=== PATIENT | male | born 1945 | race Caucasian/White ===

== ENCOUNTER 2016-12-18 14:01 | Inpatient (IN) ==
--- NOTE | 2016-12-18 14:31 | Emergency Department Note ---
Disposition Clinical Impression: Chest pain Disposition: Admitted As Inpatient Condition: Fair [facility] Care Provider[facility] - Forms: ED Satisfaction Letter General Adult HPI - General Chief complaint: ED Chest Pain Stated complaint: chest pain Time Seen by Provider: 12/18/16 14:09 Source: EMS Limitations: no limitations Nursing Notes Reviewed: Yes Vital Signs Reviewed: Yes - History of Present Illness Pain Scale: 6 - Related Data Home Medications Medication Instructions Recorded Confirmed Diclofenac Sodium [Voltaren] 2 gm TP BID 12/18/16 12/18/16 Gabapentin [Gabapentin] 800 mg PO TID 12/18/16 12/18/16 Lidocaine [Lidocream] 1 appl TP QID 12/18/16 12/18/16 Potassium Citrate [Potassium 10 meq PO TID 12/18/16 12/18/16 Citrate ER] Pravastatin Sodium [Pravastatin 20 mg PO DAILY 12/18/16 12/18/16 Sodium] Salsalate [Salsalate] 750 mg PO TID 12/18/16 12/18/16 Allergies Allergy/AdvReac Type Severity Reaction Status Date / Time No Known Allergies Allergy Verified 12/18/16 14:07 Past Medical History - Past Medical History Medical history: Reports: arthritis Psychiatric history: Reports: no psych history - Social History Smoking Status: Former smoker Smokeless Tobacco Status: No Alcohol use: Reports: none Drug use: Reports: none Physical Exam - General Limitations: no limitations General appearance: alert Course Vital Signs Temperature 97.7 F 12/18/16 14:02 Pulse Rate 67 12/18/16 14:02 Respiratory Rate 18 12/18/16 14:02 Blood Pressure 132/92 12/18/16 14:02 O2 Sat by Pulse Oximetry 96 12/18/16 14:02 Temperature 97.7 F 12/18/16 14:02 Pulse Rate 67 12/18/16 14:02 Respiratory Rate 18 12/18/16 14:02 Blood Pressure 132/92 12/18/16 14:02 O2 Sat by Pulse Oximetry 96 12/18/16 14:02 Oxygen Delivery Oxygen Delivery Room Air Medical Decision Making - MDM Narrative Medical decision making narrative: I examined this patient and my medical decision-making was reviewed with the RULING MACHINE FEEDER/PA/Advanced Practice Nurse/Resident Physician. I agree with the documented findings, disposition and treatment plan as described except to the extent set forth below. I evaluated this patient on arrival with EMS with Dr. lu. Patient is a transfer from the [facility]. He denies any chest pain it has been intermittent for couple months. They did a workup for there was negative that and have cardiology service M over to be seen. Patient is currently pain-free at this time he did get aspirin and his troponin was 0. Reviewed his EKG with no EKG years repeating an EKG then we will bring him in for admission for chest pain rule out. Patient's in agreement with this plan. 1545 hrs.: Repeated his chart review. He got nitroglycerin trial here not really certain it did anything. Samuel bring him into the hospital. Hospitalist here as a HAND BOBBIN CLEANER agreed to the admission. Patient's care with this plan..
--- NOTE | 2016-12-18 14:54 | Emergency Department Note ---
Disposition Clinical Impression: Chest pain Qualifiers: Chest pain type: unspecified Qualified Code(s): R07.9 - Chest pain, unspecified Disposition: Admitted As Inpatient Condition: Fair [facility]: [facility] [Primary Care Provider] - Forms: ED Satisfaction Letter Time of Disposition: 15:36 Chest Pain HPI - General Chief Complaint: ED Chest Pain Stated Complaint: chest pain Time Seen by Provider: 12/18/16 14:09 Source: patient, EMS Mode of arrival: EMS Limitations: no limitations Vital Signs Reviewed: Yes Nursing Notes Reviewed: Yes - History of Present Illness HPI Narrative: Patient is a 71-year-old male past medical history of arthritis. He presents today due to chest pain. He is a transfer from the [facility]. Patient states that he has had intermittent left-sided chest pain and pressure on and off for the past 2 months. Usually occurs with exertion. He states that it is a squeezing sensation around his heart. Denies any shortness of breath or nausea, vomiting, sweating. Denies abdominal pain. Denies any fevers. He had a stress test several years ago at the [facility] that was negative. He has not had any recently in the past year. Denies any previous heart attack or stents placed. Workup at the [facility] shows negative troponin 0.00, negative chest x-ray. White blood cell count 4.9. Hemoglobin 14.4. No acute abnormalities of BMP patient did not receive any nitroglycerin at the [facility]. He did receive aspirin 325. Currently states that his chest pain is about a 2 or 3 out of 10 Severity scale (1-10): 6 - Related Data Home Medications Medication Instructions Recorded Confirmed Diclofenac Sodium [Voltaren] 2 gm TP BID 12/18/16 12/18/16 Gabapentin [Gabapentin] 800 mg PO TID 12/18/16 12/18/16 Lidocaine [Lidocream] 1 appl TP QID 12/18/16 12/18/16 Potassium Citrate [Potassium 10 meq PO TID 12/18/16 12/18/16 Citrate ER] Pravastatin Sodium [Pravastatin 20 mg PO DAILY 12/18/16 12/18/16 Sodium] Salsalate [Salsalate] 750 mg PO TID 12/18/16 12/18/16 Allergies Allergy/AdvReac Type Severity Reaction Status Date / Time No Known Allergies Allergy Verified 12/18/16 14:07 Constitutional: Denies: fever, chills Cardiovascular: Reports: chest pain. Denies: palpitations, dyspnea on exertion Respiratory: Denies: cough, dyspnea, wheezes, hemoptysis Gastrointestinal: Denies: abdominal pain, nausea, vomiting Genitourinary: Denies: urgency, dysuria, frequency Musculoskeletal: Denies: back pain, neck pain Integumentary: Denies: rash Neurological: Denies: headache, weakness, numbness, paresthesias Psychiatric: Denies: anxiety, depression Chest Pain PMH - Past Medical History Medical history: Reports: arthritis Psychiatric history: Reports: no psych history - Social History Smoking Status: Former smoker Alcohol use: Reports: none Drug use: Reports: none Physical Exam - General Limitations: no limitations General appearance: alert - Head Head exam: atraumatic, normocephalic, normal inspection - Eye Eye exam: Present: normal appearance, PERRL, EOMI - ENT ENT exam: normal exam, normal oropharynx, mucous membranes moist - Neck Neck exam: Present: normal inspection, full ROM, trachea midline - Chest Chest inspection: Present: normal inspection, symmetric chest wall rise. Absent : tenderness - Respiratory Respiratory exam: Present: normal lung sounds bilaterally. Absent: respiratory distress, wheezes - Cardiovascular Cardiovascular exam: Present: regular rate, normal rhythm, normal heart sounds - Abdominal Exam Abdominal exam: Present: soft, Non-Tender. Absent: tenderness, distention, guarding, rebound, rigidity - Extremities Exam Extremities exam: Present: normal inspection, full ROM. Absent: tenderness, pedal edema - Back Exam Back exam: Present: normal inspection, full ROM. Absent: tenderness - Neurological Exam Neurological exam: Present: alert, oriented X3 - Psychiatric Psychiatric exam: Present: normal affect, normal mood - Skin Skin exam: Present: warm, dry, intact, normal color Course Course Narrative: Vitals within normal limits. Repeat EKG shows normal sinus rhythm with no acute ST changes. No additional workup needs to be done here. Troponin was drawn 2 hours ago. Not quite time to draw another troponin level. We will give patient nitroglycerin to see if this reduces chest pain. Will admit for chest pain rule out. Vital Signs Temperature 97.7 F 12/18/16 14:02 Pulse Rate 67 12/18/16 14:02 Respiratory Rate 18 12/18/16 14:02 Blood Pressure 132/92 12/18/16 14:02 O2 Sat by Pulse Oximetry 96 12/18/16 14:02 Temperature 97.7 F 12/18/16 14:02 Pulse Rate 67 12/18/16 14:02 Respiratory Rate 18 12/18/16 14:02 Blood Pressure 132/92 12/18/16 14:02 O2 Sat by Pulse Oximetry 96 12/18/16 14:02 Oxygen Delivery Oxygen Delivery Room Air Chest Pain - MDM Narrative Medical decision making narrative: Vitals within normal limits. Repeat EKG shows normal sinus rhythm with no acute ST changes. No additional workup needs to be done here. Troponin was drawn 2 hours ago. Not quite time to draw another troponin level. We will give patient nitroglycerin to see if this reduces chest pain. Will admit for chest pain rule out. - Medical Records Medical records reviewed: Yes I reviewed the patient's medical records. - Lab Data Lab results reviewed: Yes I reviewed the patient's lab results. - Radiology Data Radiology results reviewed: Yes I reviewed the patient's radiology results. - EKG Data EKG attestation: Yes I reviewed and interpreted this EKG. EKG results narrative: 12/18/2016 at 14:14. Normal sinus rhythm. Rate 68. QTC 411. QRS 89. No acute ST elevation or depression. Normal axis. Heart Score - Score History: Moderately Suspicious EKG: Normal Age: Greater than 65 Risk Factors: No risk factors known Troponin: Less than normal limit HEART Score Total: 3 S.B.A.Abby. - Francisca Situation: Demographics, MOA Background: Presenting Complaint, Relevant PMH, Meds, & Allergies Assessment: Vital Signs, Course and respsone to treatment, Exam Concerns, Patient/Family Expectation, Pertinant Lab Results, Outstanding Labs Recommendation: Barrier(s) to disposition, Recommendation based on pending studies, treatments, or consults S.B.A.RParesh Report Given to: Dr. Frandy Espinosa Repor Time: 15:36
[2016-12-18] MEDS: Nitroglycerin 0.4 MG TAB.SUBL SL PRN ×3 (15:05→15:35)
--- NOTE | 2016-12-18 16:11 | Internal Med History&Physical ---
Date of Encounter: 12/18/16 Time of Encounter: 16:08 Assessment and Plan (1) Chest pain Current visit: Yes Status: Acute Patient admitted due to chest pain under evaluation. We will keep the patient under telemetry monitoring. Will obtain cardiac markers and will follow trend. Continue with by mouth aspirin. Nitrates. Statins. DVT prophylaxis. Nothing by mouth after midnight and a stress test provided negative cardiac biomarkers. Consider evaluation by cardiology according to results of the stress test. We will order BiPAP at night for his obstructive sleep apnea. Hb A1c. Cardiac diet. Plan of care was explained in detail to the patient, he expressed understanding. Qualifiers: Chest pain type: precordial pain Qualified Code(s): R07.2 - Precordial pain Internal Medicine - H&P: HPI Chief complaint: chest paain Admitted From: Emergency Dept Plans for Post Hospital Care: Home History of present illness: Mr. Dillard is a 71 year old male with past medical history of hypertension, osteo-arthritis, obstructive sleep apnea on CPAP at home, hyperlipidemia, vitamin D deficiency, peripheral neuropathy on gabapentin. He presented to our emergency department transferred from the [facility] due to substernal chest pain which started 2 months ago. Patient states that pain is substernal, with intermittent radiation to the neck, is not associated with exertion. Pain lasts between 30 seconds to 1 minute and goes away on its own. Patient states that he complains of these symptoms usually 6 times per month. However, had above described chest pain last night at around midnight and he decided to seek medical attention. He went to the [facility] and upon evaluation he was found to have negative troponins and a chest x-ray unremarkable. He was transferred to our emergency department for further workup and management. During my encounter with the patient he is currently chest pain-free. He did receive 3 doses of sublingual nitroglycerin, he states that it is unclear to him if nitroglycerin helped to relieve the pain. The patient is a former smoker, he is used to smoke 3 packs a day but he quit in 1979. EKG did not reveal acute abnormalities. Past Med Surg Social Fam HX - Past Medical History Medical history: arthritis Psychiatric history: no psych history - Social History Smoking Status: Former smoker Smokeless Tobacco Status: No Alcohol use: none Drug use: none Internal Medicine - H&P: Meds Diclofenac Sodium [Voltaren] 2 gm TP BID 12/18/16 [History] Gabapentin [Gabapentin] 800 mg PO TID 12/18/16 [History] Lidocaine [Lidocream] 1 appl TP QID 12/18/16 [History] Potassium Citrate [Potassium Citrate ER] 10 meq PO TID 12/18/16 [History] Pravastatin Sodium [Pravastatin Sodium] 20 mg PO DAILY 12/18/16 [History] Salsalate [Salsalate] 750 mg PO TID 12/18/16 [History] Allergies No Known Allergies Allergy (Verified 12/18/16 14:07) All Systems PM: A 10-system review of systems was performed and is negative for pertinent findings except as documented above in the HPI. - Constitutional Constitutional: as per HPI, no chills, no fever(s), no night sweats - EENT Eyes: as per HPI, no change in vision, no discharge, no pain, no photophobia Ears: as per HPI, no ear discharge, no ear pain, no tinnitus Nose, mouth and throat: as per HPI, no dysphagia, no nasal discharge, no neck pain, no sore throat - Breasts Breasts: as per HPI - Cardiovascular Cardiovascular ROS IM: as per HPI, no chest pain, no diaphoresis, no dyspnea, no lightheadedness, no palpitations, no syncope - Respiratory Respiratory: as per HPI, no cough, no dyspnea, no wheezing, no excessive phlegm production - Gastrointestinal Gastrointestinal: as per HPI, no abdominal pain, no diarrhea, no hematemesis, no hematochezia, no melena, no nausea, no vomiting - Genitourinary Genitourinary ROS male: as per HPI - Musculoskeletal Musculoskeletal ROS IM: as per HPI, no numbness, no tingling - Integumentary Integumentary IM: as per HPI, no rash, no unusual bruising - Neurological Neurological ROS: as per HPI, no confusion, no convulsions, no focal weakness, no numbness, no tingling, no tremor(s) - Psychiatric Psychiatric: as per HPI - Endocrine Endocrine IM: as per HPI - Hematologic/Lymphatic Hematologic/Lymphatic: as per HPI, no easy bruising - Allergic/Immunologic Allergic/Immunologic: as per HPI - Constitutional Vitals: Temp Pulse Resp BP Pulse Ox 97.7 F 67 18 132/92 96 12/18/16 14:02 12/18/16 14:02 12/18/16 14:02 12/18/16 14:02 12/18/16 14:02 - Head Head exam: Present: atraumatic, normocephalic - Eye Eye exam: Present: PERRL, conjuntiva pink, sclera anicteric Pupils: Present: PERRL - Neck Neck exam general surgery: Present: supple, trachea midline. Absent: lymphadenopathy - Respiratory Respiratory exam: Present: CTAB. Absent: accessory muscle use, rales, rhonchi, wheezes - Cardiovascular Cardiovascular exam: Present: RRR, +S1, +S2. Absent: diastolic murmur, gallop, rubs, systolic murmur - GI/Abdominal GI/Abdominal exam: Present: normal bowel sounds, soft, no peritoneal signs. Absent: distended, tenderness - Extremities Exam Extremities exam: Present: warm, radial pulses palpable and symetrical. Absent : calf tenderness, cyanotic, pedal edema - Neurological Exam Neurological exam: Present: CN II-XII intact, oriented X3, no focal deficits. Absent: pronater drift, facial droop, speech deficit - Skin Skin exam: Present: dry, intact Internal Med - H&P Results - Labs Labs: Labs obtained at the [facility]. Reviewed, negative troponins.
[2016-12-18] MEDS ORDERED: Nitroglycerin 0.4 MG TAB.SUBL SL PRN (16:16)
[2016-12-18] MEDS ORDERED: Acetaminophen 325 MG TABLET PO PRN (16:16)
[2016-12-18] MEDS ORDERED: Naloxone 0.4 MG/ML INJ IVP PRN (16:16)
[2016-12-18] MEDS: *HR* Heparin 5,000 UNIT/ML VIAL SQ SCH (18:33)
[2016-12-18] MEDS ORDERED: D5% in 0.45% NACL 1,000 ML IVC SCH (22:00)
[2016-12-19 00:54] LABS: Basophils % 0.8 %; Eosinophils # 0.3 K/mcL (0.0-0.6); Hematocrit 39.4 % (37.5-50.1); Hemoglobin 13.1 g/dL (12.9-16.9); Immature Granulocytes % 0.4 % (0-4); Immature Platelets 1.8 % (1.1-6.1); Lymphocytes % 38.2 %; Mean Corpuscular HGB Conc 33.2 g/dL (31.6-35.5); Mean Corpuscular Hemoglobin 30.4 pg (28.0-33.3); Mean Corpuscular Volume 91.4 fL (83.0-100.0); Mean Platelet Volume 9.1 fL (9.4-12.4); Monocytes # 0.6 K/mcL (0.0-1.3); Monocytes % 11.6 %; Neutrophils # 2.2 K/mcL (1.6-8.9); Platelet Count 225 K/mcL (140-400); Red Blood Count 4.31 M/mcL (4.19-5.50); Red Cell Distribution Width 13.2 % (11.5-14.5)
[2016-12-19 01:03] LABS: INR 1.1; Prothrombin Time 12.2 Seconds (9.4-12.1)
[2016-12-19 01:33] LABS: Hemoglobin A1C 5.4 %
[2016-12-19 01:37] LABS: BUN/Creatinine Ratio 10 (6-26); Blood Urea Nitrogen 12 mg/dL (8-26); Carbon Dioxide 26 mEq/L (19-29); Chloride 106 mEq/L (98-109); Cholesterol 159 mg/dL (< 200); Glucose 100 mg/dL (70-99); HDL Cholesterol 32 mg/dL (40-59); LDL Cholesterol,Calculated 103 mg/dL (0-99); Osmolality,Calculated 292 (280-300); Sodium 141 mEq/L (136-145); Triglycerides 122 mg/dL (< 150); eGFR For African Americans > 60 (> 60); eGFR For Non-African Americans > 60 (> 60)
[2016-12-19 01:57] LABS: Thyroid Stimulating Hormone 1.598 mcIU/mL (0.350-4.840)
[2016-12-19] MEDS: *HR* Heparin 5,000 UNIT/ML VIAL SQ SCH (06:14)
[2016-12-19] MEDS ORDERED: Regadenoson 0.4 MG/5 ML SYRINGE IVP ONE (06:20)
[2016-12-19] MEDS ORDERED: Aspirin 81 MG TAB.CHEW PO SCH (09:00)
[2016-12-19 09:55] VITALS: BP 113/73
--- NOTE | 2016-12-19 11:58 | Nuclear Medicine Stress Report ---
Regadenoson Nuclear Stress Name: William Dillard Date of Study: 12/19/2016 Date: 1945 Ht: 68.0 in Medical Record#: [id number] Age: 71 Wt: 216.0 lb Gender: Male Order #: [id number] Location: [facility] Room: [facility] Supervising Provider: Mejia Holloway CNP Reading Physician: Shanti Marie DO Ordering Physician: Zoë Dumont CNP Primary Care Physician: [facility] Stress Technologist: Twila Rosario RRT [facility] Transplanter: Hortensia Tuttle Indications: Chest Pain Impression: Perfusion imaging was negative for ischemia or infarct. Pharmacologic ECG was negative for ischemia at the level of heart rate achieved. Gated EF = >70%. History: Hypercholesteremia Stress Test Summary: Stress Test Type: Pharmacologic Regadenoson 0.4mg/5ml given IV Baseline Information: Initial Heart Rate: 73 Blood Pressure: 110/80 Stress Information: Test Terminated Due to (primary): As per protocol Maximum Blood Pressure: 110/70 Maximum Heart Rate: 88 Percent Maximum Heart Rate Achieved: 59 Double Product: 9680 METS Reached: 1 Symptoms: No chest symptoms Nuclear Summary: SPECT myocardial perfusion imaging using Tc99m Sestamibi given intravenously was performed at rest and following cardiac stress testing. The resting images were obtained following initial dose of 10.8 mCi. Following stress an additional dose of 33.6 mCi was given at peak exercise or 30 seconds post regadenoson infusion. Medication Given: Time Medication Dose Units Route Findings: Stress Note * Resting ECG demonstrated normal sinus rhythm with normal findings. * Pharmacologic stress ECG is negative for ischemia at level of heart rate achieved. * No arrhythmias were noted during stress. * Patient had no chest pain during stress. Hemodynamic responses * Normal hemodynamic responses to pharmacologic stress. Study Quality * Study quality is good. Gated EF > 70% * Gated EF > 70%. Left Ventricle * The left ventricle is not dilated. TID * No evidence of transient ischemic dilatation. * Lung Uptake * There is no evidence of increase lung uptake. NORMALS * Normal wall motion. * Normal segmental perfusion in stress. * Normal Segmental Perfusion in rest. Updated by Shanti Marie on 12/19/2016 11:51:43 AM electronically signed on 12/19/2016 11:53:34 AM with status of Final
--- NOTE | 2016-12-19 15:19 | Electrocardiograph Report ---
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
--- NOTE | 2016-12-19 15:58 | Discharge Summary ---
Date of Encounter: 12/19/16 Time of Encounter: 15:55 - Discharge Diagnosis (1) Chest pain Priority: Primary Status: Acute Comments: Atypical, non-cardic chest pain Work up is negative CXR showed no acute processes EKG is NSR Troponin negative X3 Stress test with no ischemic changes, gated EF 70%. Patient educated about cardiac chest pain, continue home meds and lifestyle modification SL NTG prn Follow up with PCP Qualifiers: Chest pain type: precordial pain Qualified Code(s): R07.2 - Precordial pain - Discharge Medications Home Medications: Diclofenac Sodium [Voltaren] 2 gm TP BID 12/18/16 [History] Gabapentin [Gabapentin] 800 mg PO TID 12/18/16 [History] Lidocaine [Lidocream] 1 appl TP QID 12/18/16 [History] Potassium Citrate [Potassium Citrate ER] 10 meq PO TID 12/18/16 [History] Pravastatin Sodium [Pravastatin Sodium] 20 mg PO DAILY 12/18/16 [History] Salsalate [Salsalate] 750 mg PO TID 12/18/16 [History] Nitroglycerin 0.4 mg SL Q5-10MIN PRN #15 tab.subl 12/19/16 [Rx] Allergies/Adverse Reactions: Allergies No Known Allergies Allergy (Verified 12/18/16 14:07) Date of admission: 12/18/16 18:38 Primary care physician: PCP [place] Discharging clinician: Austin Schaefer Anticipated date of discharge: 12/19/16 - Patient Status Disposition: Home, Self-Care Condition: Good Functional capacity at discharge: independent ambulation Overall status at discharge: patient is progressing back to baseline - Discharge Instructions Follow Up With: MELANY,PCP [Primary Care Provider] - 12/25/16 3:00 pm - Diet and Activity Activity: resume usual activities as tolerated Diet: advance to your usual diet Interval History: See below Hospital course: Mr. Dillard is a 71 year old male with PMH of HTN, OTTO on CPAP, HLD , Peripehral neuropathy patient was hospitalized for chest pain r/o ACS Symptoms and signs and work up negative for ACS and no acute pulmonary processes Patient is stable for d/c home to follow up with PCP Resume home meds - Time Spent with Patient Total time spent providing and/or coordinating discharge services: Less than 30 minutes - Constitutional Vitals: Temp Pulse Resp BP Pulse Ox 97.8 F 87 16 113/73 94 L 12/19/16 09:54 12/19/16 09:54 12/19/16 09:54 12/19/16 09:54 12/19/16 09:54 General appearance: Present: A&O X 3, pleasant, no acute distress - Head Head exam: Present: atraumatic, normocephalic - Eye Eye exam: Present: PERRL, conjuntiva pink, sclera anicteric Pupils: Present: PERRL - Neck Neck exam general surgery: Present: supple, trachea midline. Absent: lymphadenopathy - Respiratory Respiratory exam: Present: CTAB. Absent: accessory muscle use, rales, rhonchi, wheezes - Cardiovascular Cardiovascular exam: Present: RRR, +S1, +S2. Absent: diastolic murmur, gallop, rubs, systolic murmur - GI/Abdominal GI/Abdominal exam: Present: normal bowel sounds, soft, no peritoneal signs. Absent: distended, tenderness - Extremities Exam Extremities exam: Present: warm, radial pulses palpable and symetrical. Absent : calf tenderness, cyanotic, pedal edema - Neurological Exam Neurological exam: Present: CN II-XII intact, oriented X3, no focal deficits. Absent: pronater drift, facial droop, speech deficit - Skin Skin exam: Present: dry, intact
== END 2016-12-19 16:23 | disposition home or self-care (01) | DRG 313 ==
LOC: EMEROO 14:01 → 3BNU 14:01 → SUATTDRO 18:38
PROVIDERS: ADMIT Internal Medicine; ATTEND Internal Medicine